=== PATIENT | male | born 1995 | race Caucasian/White ===

== ENCOUNTER 2016-12-05 09:58 | Emergency (ER) | payer BC, OTHER ==
[~2016-12-05] VITALS: Ht 188 cm; Wt 152.6 kg
[~2016-12-05 09:58] MED LIST: ACET-1311; AZITTAB PO
[2016-12-05 10:06] VITALS: BP 152/105; PULSE 86; TEMP 37.2; O2SAT 98; Ht 188 cm; Wt 152.6 kg
[2016-12-05] MEDS ORDERED: ADAL40KI INJ (10:56)
--- NOTE | 2016-12-05 11:06 | DIAGNOSTIC IMAGING REPORT ---
LEFT KNEE 3 VIEWS CLINICAL HISTORY: Left knee pain and swelling following injury. COMPARISON: None FINDINGS: Alignment of the left knee is anatomic. There is no acute fracture. Joint effusion is difficult to assess for on this examination due to overlapping musculature. There is subtle relative lucency of the distal quadriceps. IMPRESSION: 1. No acute fracture. 2. Possible left knee joint effusion, difficult to assess for on this exam due to overlapping musculature. 3. Subtle relative lucency of the distal quadriceps. This is likely artifactual although distal quadriceps tendon injury could appear similar. Electronically signed by: Sukh Baca M.D. 12/05/2016 11:04 AM Dictated Date/Time: 12/05/2016 11:00 AM
--- NOTE | 2016-12-06 07:51 | EMERGENCY ROOM VISIT NOTE ---
ED Visit Note First contact with patient: 10:10 CHIEF COMPLAINT: Left Knee injury HISTORY OF PRESENT ILLNESS: This 21-year-old [place] male patient injured the left knee yesterday when he jumped off a deck and fell into the yard. Fall was approximately 2 feet. He believes it was a pop at the time he landed. Later in the day he was attempting to wash his car and had his knee buckle when he twisted. Swelling has persisted. No prior history of significant knee injury. He denies any numbness or tingling. No catching or locking. No treatment at this point. His parents accompany him today. REVIEW OF SYSTEM: HEENT: No dizziness, visual problems, hearing loss, or tinnitus. There is no difficulty swallowing and no oral lesions are present. PULMONARY: No cough, shortness of breath, sputum production or hemoptysis. CARDIOVASCULAR: No chest pain, palpitations, shortness of breath or peripheral edema. GASTROINTESTINAL: No diarrhea, constipation, nausea, vomiting, or abdominal pain. GENITOURINARY: No dysuria, frequency, urgency or nocturia. NEUROLOGIC: No weakness, muscle tenderness, epilepsy or history of neurological problems. MUSCULOSKELETAL: No history of joint tenderness/swelling. No history of arthritis or arthralgias. SKIN: No rashes or lesions. PSYCHIATRIC: No history of depression or mental illness. ENDOCRINE: No history of diabetes, thyroid disorders, or abnormal hair growth. PMH: Significant for psoriasis Family history: Noncontributory SOCIAL HISTORY: Patient lives at home. Current medications: Humira Allergies: NKDA PHYSICAL EXAM: Vital Signs: Reviewed Nurse's notes. Afebrile. MENTAL STATUS: Alert, oriented, and cooperative. General: Well-developed, well-nourished, young male, in no acute distress. Sitting on a bed. Alert and oriented. Skin : Warm and dry with good turgor. Extensive scaling plaques on both lower extremities No ecchymosis or erythema. The patient is not diaphoretic. No abrasions. Moderate intra-articular effusion in the left knee. Musculoskeletal : The left knee is tender in the peripatellar area. Moderate intra-articular effusion. He has no current discomfort with palpation over the medial or lateral joint lines. Increase translation with Mel testing. No instability with MCL or LCL testing. The range of motion is limited secondary to pain. Full terminal extension. Flexion to around 60. No palpable defect in the patellar tendon or quadriceps tendon. He is able to perform a quad set and straight leg raise. The skin is normal and intact. Neurologic: Gross sensation is intact across the lower extremities by soft touch. EMERGENCY DEPARTMENT COURSE: Radiographic imaging obtained today was read by radiology. No evidence for fracture. Moderate joint effusion. DIAGNOSIS: Left knee instability. DISCHARGE INSTRUCTIONS: Patient was educated regarding today's findings. Conservative care measures were discussed. He will need to follow-up with orthopedics for further examination and likely MRI imaging. Possibility of anterior cruciate ligament tear was discussed with the patient. He was placed in a Knee immobilizer for protection. Wilfredo wrap was applied for compression and edema control. He'll use these at all times when upright or ambulatory. Crutches were given and crutch instruction was reviewed. Weight-bear as tolerated in the brace. Start Ibuprofen, 600 mg every 6 hours if needed for pain. Supplement with Tylenol every 6 hours for breakthrough pain. Ice and elevation to the knee frequently for the next 72 hours. Stay off the leg as much as possible. Possibility of meniscal injury, tendon rupture, and fracture were also considered. Current/Historical Medications Scheduled Adalimumab (Humira Pen), Unknown Dose INJ every other wednesday Allergies Coded Allergies: No Known Allergies (Verified , 12/05/16) Vital Signs Date Time Temp Pulse Resp B/P Pulse Ox O2 Delivery O2 Flow Rate FiO2 12/05/16 10:06 37.2 86 18 152/105 98 Room Air Departure Information Impression Primary Impression: Instability of left knee joint Dispostion Home / Self-Care Condition GOOD Referrals Andrei Paul MD Forms HOME CARE DOCUMENTATION FORM, MOTRIN USE, TYLENOL USE, IMPORTANT VISIT INFORMATION Patient Instructions [facility] Additional Instructions Tylenol and Motrin every 6 hours as needed for discomfort Ice and elevate frequently to reduce pain and swelling Use the Wilfredo wrap for compression and edema control Use the knee immobilizer at all times when upright and weightbearing Use your crutches as needed when standing/walking Call Dr. Paul on Wednesday for follow-up this week
== END 2016-12-05 11:37 | disposition home or self-care (01) ==
LOC: C.EDB 10:01
DX: M23.8X2 Other internal derangements of left knee (principal); W17.89XA Other fall from one level to another, initial encounter; Y92.018 Other place in single-family (private) house as the place of occurrence of the external cause; L40.9 Psoriasis, unspecified; Z79.899 Other long term (current) drug therapy

== ENCOUNTER 2025-05-05 14:19 | Inpatient (IN) ==
--- NOTE | 2025-05-05 14:35 | Emergency Department Note ---
Impression & Plan Cholecystitis, Abdominal pain, acute, right upper quadrant, Nausea & vomiting ED Provider Note CHIEF COMPLAINT: Abdominal pain HISTORY OF PRESENTING ILLNESS: The patient is a 29-year-old male who presents to the emergency department with complaints of right upper quadrant abdominal pain and flank pain that began yesterday. He also reports nausea, vomiting, and constipation. No known fevers. He has been taking MiraLAX without relief. Denies history of abdominal surgeries or IBD/IBS. He denies chest pain, shortness of breath, urinary symptoms, blood in his stool. REVIEW OF SYSTEMS: See HPI for pertinent positives and pertinent negatives. ALLERGIES: NKDA MEDICATIONS: Denies currently taking medications. PAST MEDICAL HISTORY: Psoriasis PHYSICAL EXAM: VITALS: Vitals are noted on the nurse's note and reviewed by myself. Vital signs stable. GENERAL: 29-year-old male, lying on his side in bed, in no acute distress, nondiaphoretic, well-developed well-nourished. SKIN: Capillary refill less than 2 seconds. Psoriasis noted on the bilateral upper extremities as well as entirety of the back. Patient does report this is his baseline. HEENT: Normocephalic. PERRLA. EOMI. Nares patent. Mucous membranes moist. Neck is supple without nuchal rigidity. HEART: Regular rate and rhythm without murmurs gallops or rubs. LUNGS: CTA BL without wheezes, rales or rhonchi. No retractions or accessory muscle use. ABDOMEN: Positive bowel sounds x 4. Tenderness upon palpation to the RUQ and right flank. McBurney's negative. Abdomen is soft without masses. Remaining abdominal quadrants are nontender. No guarding or rebound tenderness. MUSCULOSKELETAL: No gross musculoskeletal defects. NEURO: Patient was alert and oriented. No focal neurological deficits. DIFFERENTIAL DIAGNOSIS: Differential diagnosis includes appendicitis, diverticulitis, bowel obstruction, inflammatory bowel disease, renal colic, PUD, acute cholecystitis, ascending cholangitis, pancreatitis, mesenteric ischemia, aortic pathology, infection, genitourinary, UTI, perforated viscus, among others. ED COURSE AND MEDICAL DECISION MAKING: HISTORY FROM INDEPENDENT HISTORIAN: The patient himself. MEDICATIONS GIVEN: 1 L normal saline, Zofran 4 mg IV, Tylenol 1000 mg IV, Toradol 15 mg IV, Zosyn 4.5 g IV MONITOR: Continuous talent acquisition sourcer: Order was placed for continuous talent acquisition sourcer. Patient was placed on the talent acquisition sourcer and continuous pulse ox. Patient was noted to be in normal sinus rhythm at an initial rate of 51 bpm per my interpretation. EKG: EKG was interpreted by myself as sinus bradycardia. No obvious arrhythmias. No ST or T wave abnormality. No previous EKG for comparison. INTERPRETATION OF LABS: I interpreted the labs with full lab results as below in the lab section of this note. Pertinent lab results discussed in the MDM section below. INTERPRETATION OF IMAGING: Imaging studies were interpreted by myself and read by radiology as per the imaging section of this note. CT abdomen pelvis - Moderately distended gallbladder with pericholecystic inflammatory changes. Suspicious for acute cholecystitis. Ultrasound gallbladder - Findings for acute cholecystitis on ultrasound. Gallstones are seen on exam. ESCALATION OF CARE CONSIDERED: Escalation of care was considered due to the patient's presentation and right upper quadrant pain. CT imaging shows acute cholecystitis. The patient was admitted for further testing, IV antibiotics, and possible cholecystectomy. CONSULTATIONS: - On-call general surgeon Dr. Beaver - Presented the patient to the provider and known CT findings showing acute cholecystitis. He requested that the patient is admitted to medicine for an ultrasound and possible HIDA scan to investigate if there are stones. He is going to evaluate the patient in the morning. - On-call [facility] hospitalist Dr. Alvarado - Presented the patient to the provider as well as my conversation with the on-call general surgeon which can be seen above. I did inform them that I have started the patient on IV Zosyn. Nausea and pain are controlled. Ultrasound has been obtained and awaiting results. They agreed to admitting him to medicine and evaluating the patient. MDM SUMMARY: I evaluated the 29-year-old male who presents to the emergency department due to right upper quadrant abdominal pain, nausea and vomiting, and constipation for 2 days. See HPI and physical exam above. Initially 1 L normal saline, Zofran, and Tylenol were given for symptom management. IV access was established and labs were obtained. EKG collected to rule out cardiac cause and troponin ordered. EKG shows sinus bradycardia with a rate of 51. Troponin normal 4.1. No leukocytosis WBC 10.23. RBC 5.48. Hemoglobin hematocrit 15.7/46.2. No significant electrolyte abnormality. BUN 8. Creatinine 1.03. AST 18. ALT 21. Lipase 22. On reevaluation of the patient he confirms that he is still in discomfort. Toradol was given. Pain was significantly improved. CT shows distended gallbladder with pericholecystic inflammatory change suspicious for acute cholecystitis. A consultation was placed with the on-call general surgeon which can be seen in detail above. He recommended gallbladder ultrasound and HIDA scan to investigate for stone admission to medicine. Gallbladder ultrasound was ordered and IV Zosyn was started. Consultation with on-call [facility] hospitalist can be seen in detail above. Patient was admitted to medicine in stable condition for evaluation by the general surgeon in the morning. Patient agrees to this plan and all questions were answered. The patient was admitted in stable condition. DIAGNOSIS: Cholecystitis, right upper quadrant abdominal pain, nausea and vomiting The chart was completed utilizing [employer] Speech voice recognition software. Grammatical errors, random word insertions, pronoun errors, and incomplete sentences are an occasional consequence of this system due to software limitations, ambient noise, and hardware issues. Any formal questions or concerns about the content, text, or information contained within the body of this dictation should be directly addressed to the provider for clarification. Past Med/Surg History Problem List Encounter for pre-operative examination Nausea & vomiting (Acute) Abdominal pain, acute, right upper quadrant (Acute) Cholecystitis (Acute) Medical History Psoriasis Obesity Surgical History No pertinent past surgical history Social History Smoking Status: Current every day smoker Tobacco Type: E-cigarettes / Vaping Hx Alcohol Use: No Hx Substance Use: No Feels Safe at Home: Yes Allergies Allergies Allergy/AdvReac Type Severity Reaction Status Date / Time No Known Allergies Allergy Mild Verified 05/05/25 15:02 Home Meds Home Medications Medication Instructions Recorded Confirmed No Known Home Medications 05/05/25 05/05/25 Results & Data (ED) Vital Signs Vital Signs - 24 hr 05/05/25 16:30 05/05/25 18:00 05/05/25 20:00 Pulse Rate [Apical] 54 L 68 70 Respiratory Rate 16 16 18 Blood Pressure [Right Arm] 163/98 H 148/94 H 147/93 H Blood Pressure Mean [Right Arm] 119 112 111 Pulse Oximetry 100 98 99 Oxygen Delivery Method Room Air Room Air Room Air Laboratory Data 05/05/25 15:10 05/05/25 15:10 Lab Results 05/05/25 Range/Units 15:10 WBC 10.23 (4.8-10.8) K/ul RBC 5.48 (4.70-6.10) M/uL Hgb 15.7 (14.0-18.0) g/dl Hct 46.2 (42.0-52.0) % MCV 84.3 (80.0-100.0) fL MCH 28.6 (25.0-34.0) pg MCHC 34.0 (32.0-36.0) g/dL RDW Std Deviation 38.0 (36.4-46.3) fL RDW Coeff of Shanna 12.4 (11.5-14.5) % Plt Count 267 (130-400) K/uL MPV 10.6 (9.4-12.4) fL Immature Gran % (Auto) 0.2 % Neut % (Auto) 68.9 % Lymph % (Auto) 21.4 % [place] % (Auto) 6.1 % Eos % (Auto) 2.8 % Baso % (Auto) 0.6 % Neut # (Auto) 7.05 H (1.40-6.50) K/uL Lymph # (Auto) 2.19 (1.20-3.40) K/uL [place] # (Auto) 0.62 H (0.11-0.59) K/uL Eos # (Auto) 0.29 (0.00-0.50) K/uL Baso # (Auto) 0.06 (0.00-0.20) K/uL Immature Gran # (Auto) 0.02 (0.01-0.20) K/uL Sodium 139 (136-145) mmol/L Potassium 3.7 (3.5-5.1) mmol/L Chloride 108 H (98-107) mmol/L Carbon Dioxide 21 (21-32) mmol/L Anion Gap 10 (3-11) BUN 8 (6-23) mg/dl Creatinine 1.03 (0.6-1.4) mg/dl Est Cr Clr Drug Dosing 163.8 ml/min eGFR 100.84 BUN/Creatinine Ratio 7.8 L (10-20) Glucose 116 H (70-99(Fasting)) mg/dl Calcium 9.4 (8.6-10.3) mg/dl Total Bilirubin 0.8 (0.2-1.0) mg/dl AST 18 (13-39) U/L ALT 21 (7-52) U/L Alkaline Phosphatase 58 (34-104) U/L Troponin I High Sens 4.1 (0-20) pg/ml Total Protein 7.6 (6.0-8.3) gm/dl Albumin 4.6 (3.4-5.0) gm/dl Globulin 3.0 (2.5-4.0) gm/dl Albumin/Globulin Ratio 1.5 (0.9-2) Lipase 22 (11-82) U/L Administered Medications Sodium Chloride (Nss) 1,000 mls @ 125 mls/hr IV .Q8H PAOLO Stop: 05/08/25 21:40 Last Admin: 05/06/25 12:46 Dose: Not Given Documented By: Admin: 05/06/25 12:19 Dose: 125 mls/hr Documented By: Infusion: 05/06/25 10:13 Dose: Infused Documented By: Admin: 05/05/25 21:56 Dose: 125 mls/hr Documented By: DEVIN Piperacillin Sod/Tazobactam Sod (Zosyn) 4.5 gm in 100 mls @ 25 mls/hr IV Q8H PAOLO; Protocol Stop: 05/16/25 00:00 Last Admin: 05/06/25 15:03 Dose: 25 mls/hr Documented By: Infusion: 05/06/25 12:46 Dose: Infused Documented By: Admin: 05/06/25 08:06 Dose: 25 mls/hr Documented By: Infusion: 05/06/25 04:20 Dose: Infused Documented By: Admin: 05/06/25 00:20 Dose: 25 mls/hr Documented By: DEVIN Morphine Sulfate (Morphine Sulfate 4 Mg/Ml 1 Ml Carp\Vial) 4 mg IV Q3H PRN PRN Reason: Pain (6,7,8,9,10) Stop: 05/20/25 11:36 Last Admin: 05/06/25 14:30 Dose: 4 mg Documented By: FAROOQ Ondansetron HCl (Ondansetron Inj 2 Mg/Ml 2 Ml Vial) 4 mg IV Q6H PRN PRN Reason: Nausea Stop: 06/04/25 21:40 Last Admin: 05/05/25 21:56 Dose: 4 mg Documented By: DEVIN Oxycodone/Acetaminophen (Oxycodone/Acetaminophen 5mg/325mg Tab) 2 tab PO Q4H PRN PRN Reason: SEVERE Pain (7,8,9,10) Stop: 05/20/25 11:36 Last Admin: 05/06/25 12:19 Dose: 2 tab Documented By: FAROOQ Discontinued Medications Bupivacaine HCl/Epinephrine Bitart (Bupivacaine/Epinephrine 0.5% Mpf 1:200,000 30 Ml Vial) Confirm Administered Dose 30 ml .ROUTE .STK-MED ONE Stop: 05/06/25 08:20 Last Admin: 05/06/25 10:30 Dose: 20 ml Documented By: JUAN JOSE Hydromorphone HCl (Hydromorphone Inj 1 Mg/Ml Syringe) 0.25 mg IV Q5M PRN PRN Reason: PACU Use Only-Pain Stop: 05/06/25 16:25 Last Admin: 05/06/25 11:00 Dose: 0.25 mg Documented By: Admin: 05/06/25 10:55 Dose: 0.25 mg Documented By: Admin: 05/06/25 10:50 Dose: 0.25 mg Documented By: Admin: 05/06/25 10:45 Dose: 0.25 mg Documented By: LUZ Sodium Chloride (Nss) 1,000 mls @ 999 mls/hr IV .Q1H1M ONE Stop: 05/05/25 15:50 Last Infusion: 05/05/25 17:17 Dose: Infused Documented By: NRTarah Admin: 05/05/25 15:17 Dose: 999 mls/hr Documented By: ML Acetaminophen (Ofirmev) 1,000 mg in 100 mls @ 400 mls/hr IV NOW STA Stop: 05/05/25 15:04 Last Infusion: 05/05/25 15:49 Dose: Infused Documented By: Admin: 05/05/25 15:16 Dose: 400 mls/hr Documented By: ML Piperacillin Sod/Tazobactam Sod (Zosyn) 4.5 gm in 100 mls @ 200 mls/hr IV NOW ONE; Protocol Stop: 05/05/25 19:18 Last Infusion: 05/05/25 19:59 Dose: Infused Documented By: Admin: 05/05/25 19:23 Dose: 200 mls/hr Documented By: NRTarah Ioversol (Optiray 320 125ml) 119 ml IV ONCE ONE Stop: 05/05/25 17:25 Last Admin: 05/05/25 17:24 Dose: 119 ml Documented By: SHELBYK Ketorolac Tromethamine (Ketorolac Tromethamine 15 Mg/Ml Vial) 15 mg IV NOW STA Stop: 05/05/25 17:19 Last Admin: 05/05/25 17:31 Dose: 15 mg Documented By: ANALY Ketorolac Tromethamine (Ketorolac Tromethamine 15 Mg/Ml Vial) 15 mg IV Q6H PRN PRN Reason: Mod-Sev Pain (Scale 4-10) Stop: 05/10/25 21:40 Last Admin: 05/06/25 08:06 Dose: 15 mg Documented By: Admin: 05/05/25 21:55 Dose: 15 mg Documented By: DEVIN Ondansetron HCl (Ondansetron Inj 2 Mg/Ml 2 Ml Vial) 4 mg IV NOW STA Stop: 05/05/25 14:51 Last Admin: 05/05/25 15:16 Dose: 4 mg Documented By: ML Imaging Data Radiologist's Impression: Abdomen/Pelvis CT 05/05/25 14:51 CT ABDOMEN and PELVIS with INTRAVENOUS CONTRAST HISTORY: Abdominal pain TECHNIQUE: CT abdomen and pelvis with contrast. IV CONTRAST: 100 mL of OMNIPAQUE 300 ENTERIC CONTRAST: Not Given COMPARISON: FINDINGS: LOWER CHEST: Unremarkable LIVER: No focal lesion identified. Hepatic steatosis and hepatomegaly. GALLBLADDER/BILIARY: No calcified gallstones are identified. However, the gallbladder is moderately distended with pericholecystic inflammatory changes. No abnormal biliary dilatation. SPLEEN: Unremarkable. PANCREAS: Unremarkable. ADRENALS: Unremarkable. KIDNEYS: Unremarkable. No stones or hydronephrosis identified. PERITONEUM/RETROPERITONEUM. No lymphadenopathy by size criteria. No aortic aneurysm. GASTROINTESTINAL: No obstruction. Normal appendix. REPRODUCTIVE: Unremarkable BONES: No acute findings. IMPRESSION: Moderately distended gallbladder with pericholecystic inflammatory changes. This is suspicious for acute cholecystitis, particularly given the right upper quadrant pain. Further evaluation with abdominal ultrasound and HIDA scan may be considered. Normal appendix Electronically signed by Yash Lindsey 05-05-2025 6:14 PM Gallbladder Ultrasound 05/05/25 18:47 ABDOMINAL ULTRASOUND LIMITED INDICATION: Abdominal pain. TECHNIQUE: Limited upper quadrant ultrasound examination of the abdomen. COMPARISON: Same-day CT examination of the abdomen FINDINGS: LIVER: Size: Enlarged, measuring up to 22 cm in craniocaudal length. Echogenicity: Increased Surface nodularity: None Mass: None identified. BILE DUCTS: Intrahepatic ducts: Nondilated Common bile duct diameter: 5 mm GALLBLADDER: Moderately distended gallbladder with multiple large gallstones. There is wall thickening of the gallbladder with small pericholecystic fluid. Sonographic Smith sign: Absent however patient was given pain medications. PANCREAS: Visualized portions appear unremarkable RIGHT KIDNEY LENGTH: 11.2 cm No shadowing stones or hydronephrosis identified. ASCITES: None identified. IMPRESSION: Findings suspicious for acute cholecystitis on ultrasound. Gallstones are seen in this examination Echogenic and enlarged liver suggesting a parenchymal process including but limited to steatosis Electronically signed by Yash Lindsey 05-05-2025 8:43 PM Discharge Plan Visit Data Chief Complaint: Abdominal Pain Stated Complaint: ABD PAIN ED Provider: Santos Castro ED Midlevel Provider: Marbella Walters Discharge Problem: Cholecystitis, Abdominal pain, acute, right upper quadrant, Nausea & vomiting Patient Disposition: Admitted As Inpatient Condition: Fair Discharge Instructions Interventions: ED Discharge Assessment Last Done: 05/05/25 21:13 Discharge Problem: Nausea & vomiting Qualifiers: Vomiting type: unspecified Qualified Code(s): R11.2 - Nausea with vomiting, unspecified
[2025-05-05] MEDS: ACETAMINOPHEN 1,000 MG/100 ML VIAL IV STA (15:16)
[2025-05-05] MEDS: ONDANSETRON INJ 2 MG/ML 2 ML VIAL IV STA (15:16)
[2025-05-05] MEDS: SODIUM CHLORIDE 0.9% 1,000 ML IV ONE (15:17)
[2025-05-05 15:24] LABS: Hematocrit (blood only) 46.2 % (42.0-52.0); Hemoglobin 15.7 g/dl (14.0-18.0); Immature Granulocytes # (auto) 0.02 K/uL (0.01-0.20); Immature Granulocytes % (auto) 0.2 %; Mean Corpuscular Hemoglobin 28.6 pg (25.0-34.0); Mean Corpuscular Volume 84.3 fL (80.0-100.0); Platelet Count 267 K/uL (130-400); RDW Standard Deviation 38.0 fL (36.4-46.3); Red Blood Count 5.48 M/uL (4.70-6.10); White Blood Count 10.23 K/ul (4.8-10.8)
[2025-05-05 15:42] LABS: Alanine Aminotransferase 21.0 U/L (7-52); Albumin Globulin Ratio 1.5 (0.9-2); Alkaline Phosphatase 58.0 U/L (34-104); Anion Gap 10.0 (3-11); Bilirubin,Total 0.8 mg/dl (0.2-1.0); Blood Urea Nitrogen 8.0 mg/dl (6-23); Calcium 9.4 mg/dl (8.6-10.3); Carbon Dioxide 21.0 mmol/L (21-32); Chloride 108.0 mmol/L (98-107); Creatinine Clr Calc Pharmacy 163.8 ml/min; Globulin 3.0 gm/dl (2.5-4.0); Glucose 116.0 mg/dl (70-99(Fasting)); Lipase 22.0 U/L (11-82); Potassium 3.7 mmol/L (3.5-5.1); Sodium 139.0 mmol/L (136-145); Total Protein 7.6 gm/dl (6.0-8.3)
[2025-05-05] MEDS: OPTIRAY 320 125ml IV ONE (17:24)
[2025-05-05] MEDS: KETOROLAC TROMETHAMINE 15 MG/ML VIAL IV STA (17:31)
--- NOTE | 2025-05-05 18:14 | CT Scan Report ---
CT ABDOMEN and PELVIS with INTRAVENOUS CONTRAST HISTORY: Abdominal pain TECHNIQUE: CT abdomen and pelvis with contrast. IV CONTRAST: 100 mL of OMNIPAQUE 300 ENTERIC CONTRAST: Not Given COMPARISON: FINDINGS: LOWER CHEST: Unremarkable LIVER: No focal lesion identified. Hepatic steatosis and hepatomegaly. GALLBLADDER/BILIARY: No calcified gallstones are identified. However, the gallbladder is moderately distended with pericholecystic inflammatory changes. No abnormal biliary dilatation. SPLEEN: Unremarkable. PANCREAS: Unremarkable. ADRENALS: Unremarkable. KIDNEYS: Unremarkable. No stones or hydronephrosis identified. PERITONEUM/RETROPERITONEUM. No lymphadenopathy by size criteria. No aortic aneurysm. GASTROINTESTINAL: No obstruction. Normal appendix. REPRODUCTIVE: Unremarkable BONES: No acute findings. IMPRESSION: Moderately distended gallbladder with pericholecystic inflammatory changes. This is suspicious for acute cholecystitis, particularly given the right upper quadrant pain. Further evaluation with abdominal ultrasound and HIDA scan may be considered. Normal appendix Electronically signed by Yash Lindsey 05-05-2025 6:14 PM
[2025-05-05] MEDS: PIPERACILLIN/TAZOBACTAM 4.5 GM/100 ML BAG IV ONE (19:23)
--- NOTE | 2025-05-05 20:43 | Ultrasound Report ---
ABDOMINAL ULTRASOUND LIMITED INDICATION: Abdominal pain. TECHNIQUE: Limited upper quadrant ultrasound examination of the abdomen. COMPARISON: Same-day CT examination of the abdomen FINDINGS: LIVER: Size: Enlarged, measuring up to 22 cm in craniocaudal length. Echogenicity: Increased Surface nodularity: None Mass: None identified. BILE DUCTS: Intrahepatic ducts: Nondilated Common bile duct diameter: 5 mm GALLBLADDER: Moderately distended gallbladder with multiple large gallstones. There is wall thickening of the gallbladder with small pericholecystic fluid. Sonographic Smith sign: Absent however patient was given pain medications. PANCREAS: Visualized portions appear unremarkable RIGHT KIDNEY LENGTH: 11.2 cm No shadowing stones or hydronephrosis identified. ASCITES: None identified. IMPRESSION: Findings suspicious for acute cholecystitis on ultrasound. Gallstones are seen in this examination Echogenic and enlarged liver suggesting a parenchymal process including but limited to steatosis Electronically signed by Yash Lindsey 05-05-2025 8:43 PM
[2025-05-05] MEDS ORDERED: ACETAMINOPHEN 1,000 MG/100 ML VIAL IV PRN (21:41)
[2025-05-05] MEDS ORDERED: NICOTINE POLACRILEX 2 MG GUM MT PRN (21:48)
--- NOTE | 2025-05-05 21:48 | History & Physical Report ---
Date of Service May 05, 2025 Assessment & Plan (1) Cholecystitis: Plan: 29-year-old male with past medical history significant for morbid obesity, psoriasis currently not taking any medications presents with right quadrant abdominal pain of 1 day duration. Was having nausea and vomitings. Currently with the pain medication pain is improved. Resting comfortably. Afebrile. Denies any headache, runny nose or sore throat. No chest pain or shortness of breath. Hemodynamics are okay. Cholecystitis Presents with abdominal pain and CT scan showing moderate distended gallbladder with pericholecystic inflammatory changes suspicious for acute cholecystitis Gallbladder ultrasound suspicious for acute cholecystitis and gallstones are seen. Echogenic and enlarged liver suggesting peritoneal process including but limited to steatosis seen Plan for HIDA scan N.p.o., IV fluids, IV Zosyn, pain control Surgery consult Psoriasis Follow-up with PCP Morbid obesity Counseling Follow-up with PCP Vaping Request for nicotine gums Counseling DVT prophylaxis SCDs Disposition Medical floor Full code History of Present Illness Chief Complaint: Acute cholecystitis Primary Care Provider: NO PCP 29-year-old male with past medical history significant for morbid obesity, psoriasis currently not taking any medications presents with right quadrant abdominal pain of 1 day duration. Was having nausea and vomitings. Currently with the pain medication pain is improved. Resting comfortably. Afebrile. Denies any headache, runny nose or sore throat. No chest pain or shortness of breath. Hemodynamics are okay. Past medical history. As mentioned above Past surgical history. None as per [facility] Social history. Vapes. Alcohol once a month as per epic. No drug use. Family history. Father had diabetes. Hypertension. Maternal grandfather had diabetes. Hypertension. Paternal grandfather had diabetes. Hypertension. Mother has hypertension. Allergies Allergy/AdvReac Type Severity Reaction Status Date / Time No Known Allergies Allergy Mild Verified 05/05/25 15:02 Home Medications Medication Instructions Recorded Confirmed Type No Known Home Medications 05/05/25 05/05/25 History Past Med/Surg History Problem List (Updated 05/06/25 @ 07:05 by Rehan Delgado MD) Encounter for pre-operative examination Nausea & vomiting (Acute) Abdominal pain, acute, right upper quadrant (Acute) Cholecystitis (Acute) Medical History (Updated 05/06/25 @ 07:05 by Rehan Delgado MD) Psoriasis Obesity Surgical History (Updated 05/06/25 @ 07:05 by Rehan Delgado MD) No pertinent past surgical history Social History Smoking Status: Current every day smoker Tobacco Type: E-cigarettes / Vaping Hx Alcohol Use: No Hx Substance Use: No Feels Safe at Home: Yes Review of Systems Review of Systems: All systems reviewed & are unremarkable except as noted in HPI & below Physical Exam Physical Exam: General- Not in distress Head- atraumatic Eyes- PERRL. ENT- oropharynx clear Neck- supple, no JVD Lungs- clear to auscultation no wheezing or crackles Heart- regular rhythm; no murmur, no gallop. Abdomen- normal bowel sounds, soft, mild discomfort in upper abdomen, no distension. Extremities- no pretibial edema, no erythema seen Neuro- alert, oriented PERRL, no facial palsy; no dysarthria; moves extremities. Skin- diffuse psoriatic rash seen Results & Data Results & Data Vital Signs (Past 12 Hours) Vital Signs Temp Pulse Pulse Resp BP BP Pulse Ox 05/05/25 16:30 54 L 16 163/98 H 100 05/05/25 15:14 100 05/05/25 15:13 51 L 05/05/25 14:28 36.5 C 55 L 16 157/99 H 98 O2 Del Method 05/05/25 16:30 Room Air 05/05/25 15:14 Room Air 05/05/25 15:13 05/05/25 14:28 Room Air Diagnostic Findings Laboratory Results WBC 10.23 K/ul (4.8-10.8) 05/05/25 15:10 RBC 5.48 M/uL (4.70-6.10) 05/05/25 15:10 Hgb 15.7 g/dl (14.0-18.0) 05/05/25 15:10 Hct 46.2 % (42.0-52.0) 05/05/25 15:10 MCV 84.3 fL (80.0-100.0) 05/05/25 15:10 MCH 28.6 pg (25.0-34.0) 05/05/25 15:10 MCHC 34.0 g/dL (32.0-36.0) 05/05/25 15:10 RDW Std Deviation 38.0 fL (36.4-46.3) 05/05/25 15:10 RDW Coeff of Shanna 12.4 % (11.5-14.5) 05/05/25 15:10 Plt Count 267 K/uL (130-400) 05/05/25 15:10 MPV 10.6 fL (9.4-12.4) 05/05/25 15:10 Immature Gran % (Auto) 0.2 % 05/05/25 15:10 Neut % (Auto) 68.9 % 05/05/25 15:10 Lymph % (Auto) 21.4 % 05/05/25 15:10 Johnson % (Auto) 6.1 % 05/05/25 15:10 Eos % (Auto) 2.8 % 05/05/25 15:10 Baso % (Auto) 0.6 % 05/05/25 15:10 Neut # (Auto) 7.05 K/uL (1.40-6.50) H 05/05/25 15:10 Lymph # (Auto) 2.19 K/uL (1.20-3.40) 05/05/25 15:10 Johnson # (Auto) 0.62 K/uL (0.11-0.59) H 05/05/25 15:10 Eos # (Auto) 0.29 K/uL (0.00-0.50) 05/05/25 15:10 Baso # (Auto) 0.06 K/uL (0.00-0.20) 05/05/25 15:10 Immature Gran # (Auto) 0.02 K/uL (0.01-0.20) 05/05/25 15:10 Sodium 139 mmol/L (136-145) 05/05/25 15:10 Potassium 3.7 mmol/L (3.5-5.1) 05/05/25 15:10 Chloride 108 mmol/L (98-107) H 05/05/25 15:10 Carbon Dioxide 21 mmol/L (21-32) 05/05/25 15:10 Anion Gap 10 (3-11) 05/05/25 15:10 BUN 8 mg/dl (6-23) 05/05/25 15:10 Creatinine 1.03 mg/dl (0.6-1.4) 05/05/25 15:10 Est Cr Clr Drug Dosing 163.8 ml/min 05/05/25 15:10 eGFR 100.84 05/05/25 15:10 BUN/Creatinine Ratio 7.8 (10-20) L 05/05/25 15:10 Glucose 116 mg/dl (70-99(Fasting)) H 05/05/25 15:10 Calcium 9.4 mg/dl (8.6-10.3) 05/05/25 15:10 Total Bilirubin 0.8 mg/dl (0.2-1.0) 05/05/25 15:10 AST 18 U/L (13-39) 05/05/25 15:10 ALT 21 U/L (7-52) 05/05/25 15:10 Alkaline Phosphatase 58 U/L (34-104) 05/05/25 15:10 Troponin I High Sens 4.1 pg/ml (0-20) 05/05/25 15:10 Total Protein 7.6 gm/dl (6.0-8.3) 05/05/25 15:10 Albumin 4.6 gm/dl (3.4-5.0) 05/05/25 15:10 Globulin 3.0 gm/dl (2.5-4.0) 05/05/25 15:10 Albumin/Globulin Ratio 1.5 (0.9-2) 05/05/25 15:10 Lipase 22 U/L (11-82) 05/05/25 15:10 Impressions Abdomen/Pelvis CT 05/05/25 14:51 CT ABDOMEN and PELVIS with INTRAVENOUS CONTRAST HISTORY: Abdominal pain TECHNIQUE: CT abdomen and pelvis with contrast. IV CONTRAST: 100 mL of OMNIPAQUE 300 ENTERIC CONTRAST: Not Given COMPARISON: FINDINGS: LOWER CHEST: Unremarkable LIVER: No focal lesion identified. Hepatic steatosis and hepatomegaly. GALLBLADDER/BILIARY: No calcified gallstones are identified. However, the gallbladder is moderately distended with pericholecystic inflammatory changes. No abnormal biliary dilatation. SPLEEN: Unremarkable. PANCREAS: Unremarkable. ADRENALS: Unremarkable. KIDNEYS: Unremarkable. No stones or hydronephrosis identified. PERITONEUM/RETROPERITONEUM. No lymphadenopathy by size criteria. No aortic aneurysm. GASTROINTESTINAL: No obstruction. Normal appendix. REPRODUCTIVE: Unremarkable BONES: No acute findings. IMPRESSION: Moderately distended gallbladder with pericholecystic inflammatory changes. This is suspicious for acute cholecystitis, particularly given the right upper quadrant pain. Further evaluation with abdominal ultrasound and HIDA scan may be considered. Normal appendix Electronically signed by Yash Lindsey 05-05-2025 6:14 PM Gallbladder Ultrasound 05/05/25 18:47 ABDOMINAL ULTRASOUND LIMITED INDICATION: Abdominal pain. TECHNIQUE: Limited upper quadrant ultrasound examination of the abdomen. COMPARISON: Same-day CT examination of the abdomen FINDINGS: LIVER: Size: Enlarged, measuring up to 22 cm in craniocaudal length. Echogenicity: Increased Surface nodularity: None Mass: None identified. BILE DUCTS: Intrahepatic ducts: Nondilated Common bile duct diameter: 5 mm GALLBLADDER: Moderately distended gallbladder with multiple large gallstones. There is wall thickening of the gallbladder with small pericholecystic fluid. Sonographic Smith sign: Absent however patient was given pain medications. PANCREAS: Visualized portions appear unremarkable RIGHT KIDNEY LENGTH: 11.2 cm No shadowing stones or hydronephrosis identified. ASCITES: None identified. IMPRESSION: Findings suspicious for acute cholecystitis on ultrasound. Gallstones are seen in this examination Echogenic and enlarged liver suggesting a parenchymal process including but limited to steatosis Electronically signed by Yash Lindsey 05-05-2025 8:43 PM ECG Additional Comments: ECG sinus bradycardia 51. No acute ST changes seen. Code Status & VTE Plan VTE Prophylaxis Plan VTE Prophylaxis will be ordered: Yes
[2025-05-05] MEDS: KETOROLAC TROMETHAMINE 15 MG/ML VIAL IV PRN (21:55)
[2025-05-05] MEDS: SODIUM CHLORIDE 0.9% 1,000 ML IV SCH (21:56)
[2025-05-05] MEDS: ONDANSETRON INJ 2 MG/ML 2 ML VIAL IV PRN (21:56)
[2025-05-06] MEDS: PIPERACILLIN/TAZOBACTAM 4.5 GM/100 ML BAG IV SCH (00:20)
[2025-05-06 06:35] LABS: Alanine Aminotransferase 15.0 U/L (7-52); Alkaline Phosphatase 51.0 U/L (34-104); Bilirubin,Total 1.1 mg/dl (0.2-1.0); Total Protein 6.5 gm/dl (6.0-8.3)
--- NOTE | 2025-05-06 07:05 | Anesthesiology Consultation ---
Date of Service May 06, 2025 Assessment & Plan (1) Encounter for pre-operative examination: Chart Review Chart Review: Acceptable Risk for Surgery History Surgery Operation Date: 05/06/25 08:30 Proposed Procedures p Laparoscopic Cholecystectomy - Derrick Beaver MD Height/Weight Height: 6 ft 3 in Weight: 182.6 kg Allergies Allergy/AdvReac Type Severity Reaction Status Date / Time No Known Allergies Allergy Mild Verified 05/05/25 15:02 Medications Home Medications Medication Instructions Recorded Confirmed Last Taken No Known Home Medications 05/05/25 05/05/25 Unknown Active Medications Generic Name Dose Route Start Last Admin Trade Name Freq PRN Reason Stop Dose Admin Sodium Chloride 1,000 mls @ 125 mls/hr 05/05/25 21:41 05/05/25 21:56 Nss IV 05/08/25 21:40 125 mls/hr .Q8H PAOLO Administration Piperacillin Sod/Tazobactam Sod 4.5 gm in 100 mls @ 25 mls/hr 05/06/25 00:00 05/06/25 04:20 Zosyn IV 05/16/25 00:00 Infused Q8H PAOLO Infusion Protocol Ketorolac Tromethamine 15 mg 05/05/25 21:41 05/05/25 21:55 Ketorolac Tromethamine 15 Mg/Ml Vial IV 05/10/25 21:40 15 mg Q6H PRN Administration Mod-Sev Pain (Scale 4-10) Ondansetron HCl 4 mg 05/05/25 21:41 05/05/25 21:56 Ondansetron Inj 2 Mg/Ml 2 Ml Vial IV 06/04/25 21:40 4 mg Q6H PRN Administration Nausea Past Medical History Medical History (Updated 05/06/25 @ 07:05 by Rehan Delgado MD) Psoriasis Obesity Past Surgical History Surgical History (Updated 05/06/25 @ 07:05 by Rehan Delgado MD) No pertinent past surgical history Social History Smoking Status: Current every day smoker Hx Alcohol Use: No Hx Substance Use: No Physical Exam Vital Signs Last Vital Signs Temp 36.5 C 05/05/25 21:50 Pulse 56 L 05/05/25 21:50 Resp 20 05/05/25 21:50 BP 152/99 H 05/05/25 21:50 Pulse Ox 95 05/05/25 21:50 O2 Del Method Room Air 05/05/25 21:50 Testing Laboratory Results 05/05/25 15:10 05/05/25 15:10
[2025-05-06] MEDS ORDERED: ONDANSETRON INJ 2 MG/ML 2 ML VIAL ONE (07:12)
[2025-05-06] MEDS ORDERED: LIDOCAINE 2% 2 ML VIAL/AMP(20MG/ML) INFIL ONE (07:12)
[2025-05-06] MEDS ORDERED: DEXAMETHASONE SOD INJ 4 MG/ML VIAL ONE (07:12)
[2025-05-06] MEDS ORDERED: PROPOFOL IV EMULSION 10 MG/ML 20 ML VIAL IV ONE ×2 (07:12→07:13)
[2025-05-06] MEDS ORDERED: MIDAZOLAM HCL 1 MG/ML 2ML VIAL ONE (07:12)
[2025-05-06] MEDS ORDERED: LARYING-O-JET KIT (LTA) ONE (07:13)
[2025-05-06] MEDS ORDERED: ROCURONIUM BROMIDE 10 MG/ML 5 ML VIAL IV ONE ×2 (07:13→09:18)
[2025-05-06] MEDS ORDERED: SUCCINYLCHOLINE CHLORIDE 20 MG/ML 10 ML VIAL IV ONE (07:13)
[2025-05-06] MEDS ORDERED: DexMEDEtomidine HCL IV 100 MCG/ML VIAL IV ONE (07:18)
--- NOTE | 2025-05-06 08:08 | Surgery Progress Note ---
Date of Service May 06, 2025 Assessment & Plan (1) Cholecystitis: Plan: IVF NPO IV abx to OR for lap michelle Admission and Anticipated Discharge Date Admission Date: May 05, 2025 Subjective This is a 29YO male admitted with right upper quadrant abdominal pain. He had nausea and some emesis. An ultrasound shows stones and signs of inflammation. Review of Systems Constitutional: + anorexia; no fever and no chills Eyes: no problem reported Ear, Nose, Mouth, Throat: no problem reported Respiratory: no cough and no dyspnea Cardiovascular: no chest pain Gastrointestinal: + abdominal pain, + nausea and + vomitin g; no change in bowel habits Genitourinary: no dysuria Musculoskeletal: no back pain Integumentary: no problem reported Neurologic: no localized weakness and no generalized weakness Psychiatric: no behavioral changes Hematologic / Lymphatic: no easy bleeding and no easy bruising Physical Exam Constitutional: WD/WN, vitals as above + morbidly obese Eyes: no scleral abnormality ENMT: external ear and nose normal, oropharynx normal Neck: trachea midline Respiratory: normal respiratory effort, lungs clear to auscultation Cardiovascular: RRR, no murmur, no edema Gastrointestinal (Abdomen): Inspection/Auscultation: abdomen normal to inspection and normal bowel sounds; abdomen not distended Percussion/Palpation: + abdomen tender and abdomen soft; no guarding, abdomen not rigid and no hernia Musculoskeletal: Head/Neck/Chest: normocephalic and head atraumatic Skin: no rashes, warm and dry Results & Data Vital Signs (Past 12 Hours) Vital Signs Temp Pulse Pulse Resp BP Pulse Ox O2 Del Method 05/06/25 07:31 36.6 C 78 18 149/93 H 95 Room Air 05/05/25 21:50 36.5 C 56 L 20 152/99 H 95 Room Air 05/05/25 21:41 36.5 C 56 L 20 154/99 H 95 Room Air 05/05/25 21:00 68 16 146/98 H 98 Room Air Diagnostic Findings ABDOMINAL ULTRASOUND LIMITED INDICATION: Abdominal pain. TECHNIQUE: Limited upper quadrant ultrasound examination of the abdomen. COMPARISON: Same-day CT examination of the abdomen FINDINGS: LIVER: Size: Enlarged, measuring up to 22 cm in craniocaudal length. Echogenicity: Increased Surface nodularity: None Mass: None identified. BILE DUCTS: Intrahepatic ducts: Nondilated Common bile duct diameter: 5 mm GALLBLADDER: Moderately distended gallbladder with multiple large gallstones. There is wall thickening of the gallbladder with small pericholecystic fluid. Sonographic Smith sign: Absent however patient was given pain medications. PANCREAS: Visualized portions appear unremarkable RIGHT KIDNEY LENGTH: 11.2 cm No shadowing stones or hydronephrosis identified. ASCITES: None identified. IMPRESSION: Findings suspicious for acute cholecystitis on ultrasound. Gallstones are seen in this examination Echogenic and enlarged liver suggesting a parenchymal process including but limited to steatosis
[2025-05-06] MEDS ORDERED: HYDROmorphone INJ 0.5 MG/0.5 ML SYR IV PRN (08:15)
[2025-05-06] MEDS ORDERED: LABETALOL HCL IV 5 MG/ML 20ML IV PRN (08:25)
[2025-05-06] MEDS ORDERED: PROMETHAZINE HCL 6.25 MG in SODIUM CHLORIDE 0.9% 50 ML IV PRN (08:25)
[2025-05-06] MEDS ORDERED: ATROPINE SULFATE 0.1 MG/ML 10ML SYR IV PRN (08:25)
[2025-05-06] MEDS ORDERED: KETOROLAC 30 MG/ML VIAL IV PRN (08:25)
[2025-05-06] MEDS ORDERED: SUGAMMADEX SODIUM 200 MG/2 ML VIAL IV ONE (08:57)
[2025-05-06] MEDS ORDERED: HYDROmorphone INJ 1 MG/ML SYRINGE ONE (10:10)
[2025-05-06] MEDS: BUPIVACAINE/EPINEPHRINE 0.5% MPF 1:200,000 30 ML VIAL ONE (10:30)
--- NOTE | 2025-05-06 10:35 | Operative Report ---
Post Operative Report Pre & Post Diagnosis Operation Date: 05/06/25 08:30 Acute cholecystitis with hydrops of the gallbladder I identified the patient and participated in the time-out.: Yes Procedure Operation Date: 05/06/25 08:30 Laparoscopic cholecystectomy Surgeon Derrick Beaver MD [employer] Aluminum none Estimated Blood Loss 150 Findings Consistent with Post-Op Diagnosis Very inflamed gallbladder with large gallstone causing hydrops of the gallbladde r. Difficult visualization secondary to patient's body habitus. Specimens Gallbladder to pathology Drains Jose G drain in the gallbladder fossa Anesthesia Type General Complications none Disposition Accompanied Patient To Recovery: No Disposition: Recovery Room Indications This is a 29-year-old morbidly obese male who presented the ED for workup of abdominal pain. He is found to have acute cholecystitis with gallstones. We talked to him in detail about the surgery and went over the risks especially because of his morbid obesity and the acute nature of his gallbladder. He understands all the risks and wishes to proceed. Description of Procedure The patient was taken the OR, placed in the supine position and underwent excellent general endotracheal anesthesia. Their abdomen is prepped and draped normal sterile fashion. A transverse supraumbilical incision was made and dissection was taken down to identify the anterior fascia. This was extremely difficult secondary to his body habitus. Two Vicryl sutures were placed on either side of the midline and his midline was then incised. The peritoneal cavity was entered bluntly with Susan clamp. A 12mm Pulido trocar was then inserted and secured. Good pneumoperitoneum was achieved to 15 mmHg pressure. There was difficult visualization because of his intra-abdominal adiposity. The patient was placed in head up and rolled to the left position. A 11mm subxiphoid and two 5mm lateral ports were placed in the normal fashion, Long trocars had to be obtained to be able to get through his thick abdominal wall.. The gallbladder was identified and was acutely inflamed. An aspirator was then used to aspirate the gallbladder. This then facilitated grasping the the fundus of the gallbladder which was retracted superiorly. The neck of the gallbladder was grasped and then retracted laterally. There was difficult visualization because of the size of his liver and the inflammation in his gallbladder. There was a large stone which made mobilization of the gallbladder very difficult. But the Hepatocystic triangle was seen. Attention was then turned to taking down the peritoneal attachments and identify the cystic duct and cystic artery. Once these were skeletonized and a medial and lateral window was created between the gallbladder fossa and the duct, thereby ensuring the critical view. Because of the difficulty in visualization and thickness of the duct and the artery once the window was created in Endo JONO stapler was then inserted after the 12 port was exchanged for the 11 port and in the subxiphoid position. This was used to transect the artery and the duct. There was a branch of the cystic artery which was bleeding and this was clipped with a clip explosive technician. An electrocautery hook was then used to move the gallbladder off the gallbladder fossa. There was some bile spillage but no stones were spilled. The gallbladder was then placed into an Endobag and brought out through the supraumbilical incision. The pneumoperitoneum was re-established and abdomen was irrigated out until the suction fluid was clear. A Jose G drain was placed in the gallbladder fossa. There were some areas on the gallbladder fossa which were raw which were cauterized. The ports were then removed and the abdomen decompressed. The fascia of the supraumbilical incision was closed with Vicryl sutures. 0.5% Marcaine with epinephrine local was to create a local field block. The drain was sutured with a nylon suture and dahiana used to close the skin. Sterile dressings were applied. Patient tolerated the procedure without complication and sent to the postop recovery period of observation. They will then be sent to the floor for the rest of their care. This was a very difficult surgery which required more time and dissection and skill to get this gallbladder out laparoscopically, therefore modifier 22 was placed for this long and arduous case. I attest to the content of the Intraoperative Record and any orders documented therein. Any exceptions are noted below.
[2025-05-06] MEDS: HYDROmorphone INJ 1 MG/ML SYRINGE IV PRN (10:45)
--- NOTE | 2025-05-06 11:20 | Anesthesiology Progress Note ---
Date of Service May 06, 2025 Anesthesia Post Procedure Vital Signs Vital Signs: Temp Pulse Pulse Pulse Resp BP BP 05/06/25 11:15 37 C 75 17 138/78 05/06/25 11:05 73 18 129/78 05/06/25 10:55 70 17 137/82 05/06/25 10:45 68 16 140/82 05/06/25 10:36 36 C L 88 22 177/104 H 05/06/25 07:31 36.6 C 78 18 149/93 H 05/05/25 21:50 36.5 C 56 L 20 152/99 H 05/05/25 21:41 36.5 C 56 L 20 154/99 H 05/05/25 21:00 68 16 146/98 H 05/05/25 20:00 70 18 147/93 H 05/05/25 18:00 68 16 148/94 H 05/05/25 16:30 54 L 16 163/98 H 05/05/25 15:14 05/05/25 15:13 51 L 05/05/25 14:28 36.5 C 55 L 16 157/99 H Pulse Ox O2 Del Method O2 Flow Rate 05/06/25 11:15 96 Room Air 05/06/25 11:05 98 Oxymask 2 05/06/25 10:55 100 Oxymask 4 05/06/25 10:45 100 Oxymask 6 05/06/25 10:36 100 Oxymask 8 05/06/25 07:31 95 Room Air 05/05/25 21:50 95 Room Air 05/05/25 21:41 95 Room Air 05/05/25 21:00 98 Room Air 05/05/25 20:00 99 Room Air 05/05/25 18:00 98 Room Air 05/05/25 16:30 100 Room Air 05/05/25 15:14 100 Room Air 05/05/25 15:13 05/05/25 14:28 98 Room Air Pain Intensity Bilateral Upper Abdomen: Pain Intensity: 4 Abdomen: Pain Intensity: 3 Transfer of Care Handoff Completed per policy Notes Mental Status: alert / awake / arousable Patient Amnestic to Procedure: Yes Nausea / Vomiting: adequately controlled Pain: adequately controlled Airway Patency, RR, SpO2: stable & adequate BP & HR: stable & adequate Hydration State: stable & adequate Anesthetic Complications: no major complications apparent
[2025-05-06 13:18] LABS: Appearance Urine Clear (Clear); Glucose Urine UA Negative (Negative)
[2025-05-06] MEDS: MoRPHine SULFATE 4 MG/ML 1 ML CARP\\VIAL IV PRN (14:30)
--- NOTE | 2025-05-06 14:34 | Hospitalist Progress Note ---
Date of Service May 06, 2025 Assessment & Plan (1) Cholecystitis: Plan: 29-year-old male with past medical history significant for morbid obesity, psoriasis currently not taking any medications presents with right quadrant abdominal pain of 1 day duration Acute Cholecystitis -Presents with abdominal pain and CT scan showing moderate distended gallbladder with pericholecystic inflammatory changes suspicious for acute cholecystitis -Gallbladder ultrasound suspicious for acute cholecystitis and gallstones are seen. Echogenic and enlarged liver suggesting peritoneal process including but limited to steatosis seen -POD 0 acute cholecystectomy Plan: -surgery consulted, appreciate assistance on difficult case -incentive spirometer ordered -continue zosyn for 24 hours post op then stop -continue NS maintenance fluids Psoriasis -Follow-up with PCP Morbid obesity -Counseling -Follow-up with PCP Vaping -Request for nicotine gums -Counseling I spent a total of 25 minutes in direct patient care, including [id number] time with the patient and/or family, reviewing medical records, ordering and reviewing diagnostic tests, and coordinating care with other healthcare providers. This time includes: history taking, physical examination, medical decision making, counseling, ECG interpretation, imaging interpretation, lab interpretation, orders, and education, excluding time spent in the performance of separately billed services. Admission and Anticipated Discharge Date Admission Date: May 05, 2025 Subjective Patient not seen due to complicated cholycystectomy in OR during rounds. Review of Systems Review of Systems: -patient not seen Physical Exam Physical Exam: -patient not seen Results & Data Results & Data Vital Signs (Past 12 Hours) Vital Signs Temp Pulse Pulse Pulse Resp BP Pulse Ox 05/06/25 13:59 36.4 C L 70 20 136/86 96 05/06/25 12:50 36.7 C 83 18 130/84 96 05/06/25 12:21 36.4 C L 75 18 119/77 94 05/06/25 11:45 37.4 C 73 20 127/85 96 05/06/25 11:25 71 17 133/75 96 05/06/25 11:15 37 C 75 17 138/78 96 05/06/25 11:05 73 18 129/78 98 05/06/25 10:55 70 17 137/82 100 05/06/25 10:45 68 16 140/82 100 05/06/25 10:36 36 C L 88 22 177/104 H 100 05/06/25 07:31 36.6 C 78 18 149/93 H 95 O2 Del Method O2 Flow Rate 05/06/25 13:59 Room Air 05/06/25 12:50 Room Air 05/06/25 12:21 Room Air 05/06/25 11:45 Room Air 05/06/25 11:25 Room Air 05/06/25 11:15 Room Air 05/06/25 11:05 Oxymask 2 05/06/25 10:55 Oxymask 4 05/06/25 10:45 Oxymask 6 05/06/25 10:36 Oxymask 8 05/06/25 07:31 Room Air Laboratory Results -personally reviewed, creatinine 1.03 (unclear baseline), no leukocytosis noted, Hgb WNL Medications Administered Sodium Chloride (Nss) 1,000 mls @ 125 mls/hr IV .Q8H PAOLO Stop: 05/08/25 21:40 Last Admin: 05/06/25 12:46 Dose: Not Given Documented By: Admin: 05/06/25 12:19 Dose: 125 mls/hr Documented By: Infusion: 05/06/25 10:13 Dose: Infused Documented By: Admin: 05/05/25 21:56 Dose: 125 mls/hr Documented By: DEVIN Piperacillin Sod/Tazobactam Sod (Zosyn) 4.5 gm in 100 mls @ 25 mls/hr IV Q8H PAOLO; Protocol Stop: 05/16/25 00:00 Last Infusion: 05/06/25 12:46 Dose: Infused Documented By: Admin: 05/06/25 08:06 Dose: 25 mls/hr Documented By: Infusion: 05/06/25 04:20 Dose: Infused Documented By: Admin: 05/06/25 00:20 Dose: 25 mls/hr Documented By: DEVIN Morphine Sulfate (Morphine Sulfate 4 Mg/Ml 1 Ml Carp\Vial) 4 mg IV Q3H PRN PRN Reason: Pain (6,7,8,9,10) Stop: 05/20/25 11:36 Last Admin: 05/06/25 14:30 Dose: 4 mg Documented By: FAROOQ Ondansetron HCl (Ondansetron Inj 2 Mg/Ml 2 Ml Vial) 4 mg IV Q6H PRN PRN Reason: Nausea Stop: 06/04/25 21:40 Last Admin: 05/05/25 21:56 Dose: 4 mg Documented By: DEVIN Oxycodone/Acetaminophen (Oxycodone/Acetaminophen 5mg/325mg Tab) 2 tab PO Q4H PRN PRN Reason: SEVERE Pain (7,8,9,10) Stop: 05/20/25 11:36 Last Admin: 05/06/25 12:19 Dose: 2 tab Documented By: FAROOQ
--- NOTE | 2025-05-06 16:32 | Electrocardiogram Report ---
Test Reason : Blood Pressure : */* mmHG Vent. Rate : 51 BPM Atrial Rate : 51 BPM P-R Int : 144 ms QRS Dur : 114 ms QT Int : 420 ms P-R-T Axes : 40 53 34 degrees QTcB Int : 387 ms Sinus bradycardia Otherwise normal ECG No previous ECGs available Confirmed by Dimitris Graham ([id number]) on 05/06/2025 4:32:01 PM Referred By: REFERRED SELF Confirmed By: Dimitris Graham
[2025-05-06] MEDS: MoRPHine SULFATE 2 MG/ML CARP IV PRN (19:49)
[2025-05-07 06:52] LABS: Hematocrit (blood only) 40.5 % (42.0-52.0); Hemoglobin 13.1 g/dl (14.0-18.0); Mean Corpuscular Hemoglobin 28.4 pg (25.0-34.0); Mean Corpuscular Volume 87.7 fL (80.0-100.0); Platelet Count 194 K/uL (130-400); RDW Standard Deviation 39.3 fL (36.4-46.3); Red Blood Count 4.62 M/uL (4.70-6.10); White Blood Count 8.78 K/ul (4.8-10.8)
[2025-05-07 07:19] LABS: Alanine Aminotransferase 28.0 U/L (7-52); Albumin Globulin Ratio 1.3 (0.9-2); Alkaline Phosphatase 50.0 U/L (34-104); Anion Gap 6.0 (3-11); Bilirubin,Total 1.4 mg/dl (0.2-1.0); Blood Urea Nitrogen 7.0 mg/dl (6-23); Calcium 8.0 mg/dl (8.6-10.3); Carbon Dioxide 24.0 mmol/L (21-32); Chloride 108.0 mmol/L (98-107); Creatinine Clr Calc Pharmacy 238.5 ml/min; Globulin 2.8 gm/dl (2.5-4.0); Glucose 102.0 mg/dl (70-99(Fasting)); Magnesium 1.9 mg/dl (1.7-2.4); Potassium 3.8 mmol/L (3.5-5.1); Sodium 138.0 mmol/L (136-145); Total Protein 6.4 gm/dl (6.0-8.3)
--- NOTE | 2025-05-07 12:28 | Surgery Progress Note ---
Date of Service May 07, 2025 Assessment & Plan (1) Cholecystitis: Plan: con't clears IV abx monitor drain slow progress with severely inflamed GB Admission and Anticipated Discharge Date Admission Date: May 05, 2025 Subjective pain controlled AF VSS drain slowing Review of Systems Constitutional: no fever and no chills Respiratory: no dyspnea Cardiovascular: no chest pain Gastrointestinal: + abdominal pain; no nausea and no vomit ing Neurologic: no localized weakness Psychiatric: no behavioral changes Physical Exam Constitutional: WD/WN, vitals as above Respiratory: normal respiratory effort Cardiovascular: Rate/Rhythm: regular rate and regular rhythm Gastrointestinal (Abdomen): Inspection/Auscultation: abdomen normal to inspection; abdomen not distended Percussion/Palpation: + abdomen tender and abdomen soft; no guarding and abdomen not rigid venu serosanguinous Musculoskeletal: Head/Neck/Chest: normocephalic and head atraumatic Skin: no rashes, warm and dry Results & Data Vital Signs (Past 12 Hours) Vital Signs Temp Pulse Pulse Resp BP Pulse Ox O2 Del Method 05/07/25 12:00 36.7 C 91 H 17 148/104 H 95 Room Air 05/07/25 08:11 36.7 C 92 H 14 146/86 H 95 Room Air 05/07/25 07:22 36.8 C 75 16 132/78 96 Room Air 05/07/25 04:03 37.5 C 78 18 135/79 94 Room Air
[2025-05-07] MEDS: MoRPHine SULFATE 2 MG/ML CARP IV PRN (12:32)
--- NOTE | 2025-05-07 14:33 | Hospitalist Progress Note ---
Date of Service May 07, 2025 Assessment & Plan (1) Cholecystitis: Plan: 29-year-old male with past medical history significant for morbid obesity, psoriasis currently not taking any medications presents with right quadrant abdominal pain of 1 day duration Acute Cholecystitis s/p Cholecystectomy 05/06/2025 Sepsis -Presents with abdominal pain and CT scan showing moderate distended gallbladder with pericholecystic inflammatory changes suspicious for acute cholecystitis -Gallbladder ultrasound suspicious for acute cholecystitis and gallstones are seen. Echogenic and enlarged liver suggesting peritoneal process including but limited to steatosis seen -POD 1 acute cholecystectomy -patient with fever, tachycardia post op with abdomen as source Plan: -surgery consulted, appreciate assistance on difficult case -check CT abdomen/pelvis with contrast, xr chest, and urinalysis given new fever/tachycardia that was not present before procedure and already on abx, technically very complex procedure given anatomy and severity of gallbladder disease, discussed personally with surgery -incentive spirometer ordered -continue zosyn for now given sepsis -continue NS maintenance fluids Psoriasis -Follow-up with PCP Morbid obesity -Counseling -Follow-up with PCP Vaping -Request for nicotine gums -Counseling I spent a total of 50 minutes in direct patient care, including [id number] time with the patient and/or family, reviewing medical records, ordering and reviewing diagnostic tests, and coordinating care with other healthcare providers. This time includes: history taking, physical examination, medical decision making, counseling, ECG interpretation, imaging interpretation, lab interpretation, orders, and education, excluding time spent in the performance of separately billed services. Admission and Anticipated Discharge Date Admission Date: May 05, 2025 Subjective Patient seen and examined at bedside. Mother present as well. Patient doing ok this morning. Of note, this afternoon tachycardic with fever of 38 C. Review of Systems Review of Systems: CONSTITUTIONAL: Patient denies fevers, chills, sweats and weight changes. EYES: Patient denies any visual symptoms. EARS, NOSE, AND THROAT: No difficulties with hearing. No symptoms of rhinitis or sore throat. CARDIOVASCULAR: Patient denies chest pains, palpitations, orthopnea and paroxysmal nocturnal dyspnea. RESPIRATORY: No dyspnea on exertion, no wheezing or cough. GI: No nausea, vomiting, diarrhea, constipation, abdominal pain, hematochezia or melena. : No urinary hesitancy or dribbling. No nocturia or urinary frequency. No abnormal urethral discharge. MUSCULOSKELETAL: post op pain NEUROLOGIC: No chronic headaches, no seizures. Patient denies numbness, tingling or weakness. PSYCHIATRIC: Patient denies problems with mood disturbance. No problems with anxiety. ENDOCRINE: No excessive urination or excessive thirst. DERMATOLOGIC: Patient denies any rashes or skin changes. Physical Exam Physical Exam: Gen: A&O 3 NAD HEENT: NCAT, EOMI, not icteric. External ears normal. No rhinorrhea. Moist mucous membranes. Neck: Supple, full range of motion, no observable masses, No meningeal sign. Lungs: No Respiratory distress. CV: RRR, no edema. Abdomen: mild tenderness to palpation around wound site, no clear purulence of drainage, drain in place MSK: No joint swelling, no redness. Skin: No rashes, petechiae, lesions. Normal color per patient. Neuro: Normal Gait, Grossly intact. Psych: Appropriate for situation. Results & Data Results & Data Vital Signs (Past 12 Hours) Vital Signs Temp Pulse Pulse Resp BP Pulse Ox O2 Del Method 05/07/25 14:11 37.9 C H 101 H 16 132/92 92 Room Air 05/07/25 12:00 36.7 C 91 H 17 148/104 H 95 Room Air 05/07/25 08:11 36.7 C 92 H 14 146/86 H 95 Room Air 05/07/25 07:22 36.8 C 75 16 132/78 96 Room Air 05/07/25 04:03 37.5 C 78 18 135/79 94 Room Air Laboratory Results -personally reviewed, Hgb stable, creatinine downtrending Medications Administered Sodium Chloride (Nss) 1,000 mls @ 125 mls/hr IV .Q8H PAOLO Stop: 05/08/25 21:40 Last Admin: 05/07/25 13:28 Dose: 125 mls/hr Documented By: Infusion: 05/07/25 13:26 Dose: Infused Documented By: Admin: 05/07/25 05:16 Dose: 125 mls/hr Documented By: Infusion: 05/07/25 05:16 Dose: Infused Documented By: Admin: 05/06/25 21:21 Dose: 125 mls/hr Documented By: Infusion: 05/06/25 20:26 Dose: Infused Documented By: Admin: 05/06/25 12:46 Dose: Not Given Documented By: Admin: 05/06/25 12:19 Dose: 125 mls/hr Documented By: Infusion: 05/06/25 10:13 Dose: Infused Documented By: Admin: 05/05/25 21:56 Dose: 125 mls/hr Documented By: DEVIN Piperacillin Sod/Tazobactam Sod (Zosyn) 4.5 gm in 100 mls @ 25 mls/hr IV Q8H SC [facility]; Protocol Stop: 05/16/25 00:00 Last Infusion: 05/07/25 12:31 Dose: Infused Documented By: Admin: 05/07/25 08:29 Dose: 25 mls/hr Documented By: Infusion: 05/07/25 01:22 Dose: Infused Documented By: Admin: 05/06/25 21:21 Dose: 25 mls/hr Documented By: Infusion: 05/06/25 19:35 Dose: Infused Documented By: Admin: 05/06/25 15:03 Dose: 25 mls/hr Documented By: Infusion: 05/06/25 12:46 Dose: Infused Documented By: Admin: 05/06/25 08:06 Dose: 25 mls/hr Documented By: Infusion: 05/06/25 04:20 Dose: Infused Documented By: Admin: 05/06/25 00:20 Dose: 25 mls/hr Documented By: DEVIN Morphine Sulfate (Morphine Sulfate 2 Mg/Ml Carp) 2 mg IV Q3H PRN PRN Reason: breakthrough pain & Pre PT Stop: 05/20/25 11:36 Last Admin: 05/07/25 12:32 Dose: 2 mg Documented By: SANDOR Ondansetron HCl (Ondansetron Inj 2 Mg/Ml 2 Ml Vial) 4 mg IV Q6H PRN PRN Reason: Nausea Stop: 06/04/25 21:40 Last Admin: 05/06/25 19:49 Dose: 4 mg Documented By: Admin: 05/05/25 21:56 Dose: 4 mg Documented By: DEVIN Oxycodone/Acetaminophen (Oxycodone/Acetaminophen 5mg/325mg Tab) 1 tab PO Q4H PRN PRN Reason: MODERATE Pain (4,5,6) & Pre PT Stop: 05/20/25 11:36 Last Admin: 05/07/25 13:30 Dose: 1 tab Documented By: SANDOR Oxycodone/Acetaminophen (Oxycodone/Acetaminophen 5mg/325mg Tab) 2 tab PO Q4H PRN PRN Reason: SEVERE Pain (7,8,9,10) Stop: 05/20/25 11:36 Last Admin: 05/06/25 16:05 Dose: 2 tab Documented By: Admin: 05/06/25 12:19 Dose: 2 tab Documented By: FAROOQ
--- NOTE | 2025-05-07 15:01 | XRay Report ---
XR chest 1V portable CLINICAL HISTORY: post op fever COMPARISON STUDY: None FINDINGS: Heart size and pulmonary vasculature are normal. Inspiration is shallow. There is stranding opacity in the lung bases. No lobar consolidation, pleural effusion, or pneumothorax. IMPRESSION: Atelectasis versus early pneumonia in the lung bases. ACT 112: Negative or not required by law. Electronically signed by: Lencho Hinds M.D. 05/07/2025 3:00 PM
[2025-05-07] MEDS: OPTIRAY 320 125ml IV ONE (15:15)
--- NOTE | 2025-05-07 15:40 | CT Scan Report ---
ABDOMEN AND PELVIS CT WITH IV CONTRAST CT DOSE: 1802.9 mGy.cm HISTORY: Acute fever status post cholecystectomy tachycarida/fevers post cholecystectomy TECHNIQUE: Multiaxial CT images of the abdomen and pelvis were performed following the IV administrat ion of 115 cc of Optiray, A dose lowering technique was utilized adhering to the principles of ALARA . COMPARISON STUDY: 05/05/2025 FINDINGS: Linear bibasilar consolidative dependent opacities, right greater than left. Subcutaneous a nd deep tissue air in the lateral right abdomen and periumbilical tissues adjacent to the trocar site s related to recent laparoscopic cholecystectomy. Additionally, there are 2 trace scattered foci of u pper abdominal pneumoperitoneum. Surgical clips from cholecystectomy with centrally hypodense structu re within the michelle hepatis measuring 2.6 x 2.4 cm on image 132 series 3. Moderate adjacent stranding with trace fluid tracking along the right pericolic gutter. No drainable fluid collections. A cathet er is in place with distal tip terminating along the inferior liver margin on image 151 series 3 ante rior to the michelle hepatis. Unremarkable spleen, pancreas and right adrenal gland. Stable probable adenoma of the left adrenal gl and measures 1.2 cm. Hepatomegaly with hepatic steatosis. The portal vein appears patent. Unremarkabl e kidneys. No hydronephrosis. Urinary bladder is within normal limits. Aorta and IVC are unremarkable . Mild wall thickening of the duodenum is likely reactive. No bowel obstruction. Normal contrast-fill ed appendix. No acute fracture. IMPRESSION: 1. Postoperative changes compatible with recent laparoscopic cholecystectomy. Probable residual gallb ladder within the michelle hepatis with trace expected ascites and surgical drainage catheter in place. 2. Subcutaneous emphysema of the abdominal wall with trace pneumoperitoneum, also likely expected pos toperative findings. 3. No bowel obstruction. 4. Normal appendix. 5. Bibasilar consolidation suggestive of atelectasis. Pneumonia considered less likely. ACT 112: Negative or not required by law. The above report was generated using voice recognition software. It may contain grammatical, syntax o r spelling errors. Electronically signed by: Rohan Packer M.D. 05/07/2025 3:38 PM
[2025-05-07 15:55] LABS: Appearance Urine Clear (Clear); Glucose Urine UA Negative (Negative)
[2025-05-07] MEDS: DOXYCYCLINE HYCLATE 100 MG CAP PO SCH (21:24)
[2025-05-08 06:29] LABS: Hematocrit (blood only) 39.1 % (42.0-52.0); Hemoglobin 13.1 g/dl (14.0-18.0); Mean Corpuscular Hemoglobin 29.1 pg (25.0-34.0); Mean Corpuscular Volume 86.9 fL (80.0-100.0); Platelet Count 197 K/uL (130-400); RDW Standard Deviation 39.1 fL (36.4-46.3); Red Blood Count 4.50 M/uL (4.70-6.10); White Blood Count 6.70 K/ul (4.8-10.8)
[2025-05-08 06:47] LABS: Alanine Aminotransferase 25.0 U/L (7-52); Albumin Globulin Ratio 1.3 (0.9-2); Alkaline Phosphatase 53.0 U/L (34-104); Anion Gap 8.0 (3-11); Bilirubin,Total 1.3 mg/dl (0.2-1.0); Blood Urea Nitrogen 6.0 mg/dl (6-23); Calcium 8.0 mg/dl (8.6-10.3); Carbon Dioxide 23.0 mmol/L (21-32); Chloride 109.0 mmol/L (98-107); Creatinine Clr Calc Pharmacy 238.5 ml/min; Globulin 2.7 gm/dl (2.5-4.0); Glucose 89.0 mg/dl (70-99(Fasting)); Potassium 3.5 mmol/L (3.5-5.1); Sodium 140.0 mmol/L (136-145); Total Protein 6.1 gm/dl (6.0-8.3)
--- NOTE | 2025-05-08 08:25 | Surgery Progress Note ---
Date of Service May 08, 2025 Assessment & Plan (1) Cholecystitis: Plan: severe acute cholecystitis con't IV abx monitor drain ambulate Admission and Anticipated Discharge Date Admission Date: May 05, 2025 Subjective feels alot better today AF VSS CT scan with post op changes drain not bilious Review of Systems Constitutional: no fever and no chills Respiratory: no dyspnea Cardiovascular: no chest pain Gastrointestinal: + abdominal pain; no nausea and no vomit ing Genitourinary: no dysuria Neurologic: no localized weakness Psychiatric: no behavioral changes Physical Exam Constitutional: WD/WN, vitals as above Eyes: no scleral abnormality Respiratory: normal respiratory effort Cardiovascular: Rate/Rhythm: regular rate and regular rhythm Gastrointestinal (Abdomen): Inspection/Auscultation: abdomen normal to inspection; abdomen not distended Percussion/Palpation: + abdomen tender and abdomen soft; no guarding and abdomen not rigid Skin: no rashes, warm and dry Results & Data Vital Signs (Past 12 Hours) Vital Signs Temp Pulse Resp BP Pulse Ox O2 Del Method 05/08/25 08:06 36.2 C L 73 21 150/95 H 96 Room Air 05/08/25 03:54 37.6 C H 84 18 132/83 94 Room Air 05/08/25 00:05 36.5 C 91 H 18 149/85 H 93 Room Air
--- NOTE | 2025-05-08 17:54 | Hospitalist Progress Note ---
Date of Service May 08, 2025 Assessment & Plan (1) Cholecystitis: Plan: 29-year-old male with past medical history significant for morbid obesity, psoriasis currently not taking any medications presents with right quadrant abdominal pain of 1 day duration Acute Cholecystitis s/p Cholecystectomy 05/06/2025 Sepsis -Presents with abdominal pain and CT scan showing moderate distended gallbladder with pericholecystic inflammatory changes suspicious for acute cholecystitis -Gallbladder ultrasound suspicious for acute cholecystitis and gallstones are seen. Echogenic and enlarged liver suggesting peritoneal process including but limited to steatosis seen -POD 2 acute cholecystectomy -patient with fever, tachycardia post op which has since improved, workup relatively unremarkable Plan: -surgery consulted, appreciate assistance on difficult case, discussed personally with surgery -incentive spirometer ordered -continue zosyn for now given sepsis -stop maintenance fluids -advanced diet which patient tolerated well, requested no discharge until tomorrow, likely discharge in AM 05/09/2025 Psoriasis -Follow-up with PCP Morbid obesity -Counseling -Follow-up with PCP Vaping -Request for nicotine gums -Counseling I spent a total of 40 minutes in direct patient care, including [id number] time with the patient and/or family, reviewing medical records, ordering and reviewing diagnostic tests, and coordinating care with other healthcare providers. This time includes: history taking, physical examination, medical de cision making, counseling, ECG interpretation, imaging interpretation, lab interpretation, orders, and education, excluding time spent in the performance of separately billed services. Admission and Anticipated Discharge Date Admission Date: May 05, 2025 Subjective Patient seen and examined at bedside. patient doing better today, walking around and pain well controlled. Review of Systems Review of Systems: CONSTITUTIONAL: Patient denies fevers, chills, sweats and weight changes. EYES: Patient denies any visual symptoms. EARS, NOSE, AND THROAT: No difficulties with hearing. No symptoms of rhinitis or sore throat. CARDIOVASCULAR: Patient denies chest pains, palpitations, orthopnea and paroxysmal nocturnal dyspnea. RESPIRATORY: No dyspnea on exertion, no wheezing or cough. GI: No nausea, vomiting, diarrhea, constipation, abdominal pain, hematochezia or melena. : No urinary hesitancy or dribbling. No nocturia or urinary frequency. No abnormal urethral discharge. MUSCULOSKELETAL: post op pain, improved NEUROLOGIC: No chronic headaches, no seizures. Patient denies numbness, tingling or weakness. PSYCHIATRIC: Patient denies problems with mood disturbance. No problems with anxiety. ENDOCRINE: No excessive urination or excessive thirst. DERMATOLOGIC: Patient denies any rashes or skin changes. Physical Exam Physical Exam: Gen: A&O 3 NAD HEENT: NCAT, EOMI, not icteric. External ears normal. No rhinorrhea. Moist mucous membranes. Neck: Supple, full range of motion, no observable masses, No meningeal sign. Lungs: No Respiratory distress. CV: RRR, no edema. Abdomen: mild tenderness to palpation around wound site, no clear purulence of drainage, drain in place MSK: No joint swelling, no redness. Skin: No rashes, petechiae, lesions. Normal color per patient. Neuro: Normal Gait, Grossly intact. Psych: Appropriate for situation. Results & Data Results & Data Vital Signs (Past 12 Hours) Vital Signs Temp Pulse Resp BP Pulse Ox O2 Del Method 05/08/25 16:45 36.5 C 72 20 155/95 H 94 Room Air 05/08/25 11:01 36.8 C 67 18 152/98 H 95 Room Air 05/08/25 08:06 36.2 C L 73 21 150/95 H 96 Room Air 05/08/25 08:00 Room Air Laboratory Results -personally reviewed, no leukocytosis, creatinine at baseline Medications Administered Doxycycline Hyclate (Doxycycline Hyclate 100 Mg Cap) 100 mg PO BID [facility] Stop: 05/12/25 20:59 Last Admin: 05/08/25 07:54 Dose: 100 mg Documented By: Admin: 05/07/25 21:24 Dose: 100 mg Documented By: RALF Sodium Chloride (Nss) 1,000 mls @ 125 mls/hr IV .Q8H PAOLO Stop: 05/08/25 21:40 Last Admin: 05/08/25 12:58 Dose: 125 mls/hr Documented By: Infusion: 05/08/25 12:58 Dose: Infused Documented By: Infusion: 05/08/25 07:56 Dose: 125 mls/hr Documented By: Infusion: 05/08/25 07:54 Dose: 0 mls/hr Documented By: Admin: 05/08/25 05:24 Dose: 125 mls/hr Documented By: Infusion: 05/08/25 05:24 Dose: Infused Documented By: [employer] ENGINEER Admin: 05/07/25 21:24 Dose: 125 mls/hr Documented By: [employer] ENGINEER Infusion: 05/07/25 21:24 Dose: Infused Documented By: [employer] ENGINEER Admin: 05/07/25 13:28 Dose: 125 mls/hr Documented By: Infusion: 05/07/25 13:26 Dose: Infused Documented By: Admin: 05/07/25 05:16 Dose: 125 mls/hr Documented By: Infusion: 05/07/25 05:16 Dose: Infused Documented By: Admin: 05/06/25 21:21 Dose: 125 mls/hr Documented By: Infusion: 05/06/25 20:26 Dose: Infused Documented By: Admin: 05/06/25 12:46 Dose: Not Given Documented By: Admin: 05/06/25 12:19 Dose: 125 mls/hr Documented By: Infusion: 05/06/25 10:13 Dose: Infused Documented By: Admin: 05/05/25 21:56 Dose: 125 mls/hr Documented By: DEVIN Piperacillin Sod/Tazobactam Sod (Zosyn) 4.5 gm in 100 mls @ 25 mls/hr IV Q8H [facility]; Protocol Stop: 05/16/25 00:00 Last Admin: 05/08/25 15:42 Dose: 25 mls/hr Documented By: Infusion: 05/08/25 12:00 Dose: Infused Documented By: Admin: 05/08/25 07:54 Dose: 25 mls/hr Documented By: Infusion: 05/08/25 03:56 Dose: Infused Documented By: [employer] ENGINEER Admin: 05/07/25 23:56 Dose: 25 mls/hr Documented By: [employer] ENGINEER Infusion: 05/07/25 21:08 Dose: Infused Documented By: [employer] ENGINEER Admin: 05/07/25 17:07 Dose: 25 mls/hr Documented By: Infusion: 05/07/25 12:31 Dose: Infused Documented By: Admin: 05/07/25 08:29 Dose: 25 mls/hr Documented By: Infusion: 05/07/25 01:22 Dose: Infused Documented By: Admin: 05/06/25 21:21 Dose: 25 mls/hr Documented By: Infusion: 05/06/25 19:35 Dose: Infused Documented By: Admin: 05/06/25 15:03 Dose: 25 mls/hr Documented By: Infusion: 05/06/25 12:46 Dose: Infused Documented By: Admin: 05/06/25 08:06 Dose: 25 mls/hr Documented By: Infusion: 05/06/25 04:20 Dose: Infused Documented By: Admin: 05/06/25 00:20 Dose: 25 mls/hr Documented By: DEVIN Ondansetron HCl (Ondansetron Inj 2 Mg/Ml 2 Ml Vial) 4 mg IV Q6H PRN PRN Reason: Nausea Stop: 06/04/25 21:40 Last Admin: 05/06/25 19:49 Dose: 4 mg Documented By: Admin: 05/05/25 21:56 Dose: 4 mg Documented By: DEVIN Oxycodone/Acetaminophen (Oxycodone/Acetaminophen 5mg/325mg Tab) 1 tab PO Q4H PRN PRN Reason: MODERATE Pain (4,5,6) & Pre PT Stop: 05/20/25 11:36 Last Admin: 05/08/25 13:00 Dose: 1 tab Documented By: Admin: 05/08/25 03:07 Dose: 1 tab Documented By: Admin: 05/07/25 19:21 Dose: 1 tab Documented By: Admin: 05/07/25 13:30 Dose: 1 tab Documented By: SANDOR Oxycodone/Acetaminophen (Oxycodone/Acetaminophen 5mg/325mg Tab) 2 tab PO Q4H PRN PRN Reason: SEVERE Pain (7,8,9,10) Stop: 05/20/25 11:36 Last Admin: 05/06/25 16:05 Dose: 2 tab Documented By: Admin: 05/06/25 12:19 Dose: 2 tab Documented By: FAROOQ
[2025-05-09 06:08] LABS: Hematocrit (blood only) 38.8 % (42.0-52.0); Hemoglobin 13.2 g/dl (14.0-18.0); Mean Corpuscular Hemoglobin 29.5 pg (25.0-34.0); Mean Corpuscular Volume 86.8 fL (80.0-100.0); Platelet Count 226 K/uL (130-400); RDW Standard Deviation 38.0 fL (36.4-46.3); Red Blood Count 4.47 M/uL (4.70-6.10); White Blood Count 5.91 K/ul (4.8-10.8)
[2025-05-09 06:28] LABS: Alanine Aminotransferase 24.0 U/L (7-52); Albumin Globulin Ratio 1.3 (0.9-2); Alkaline Phosphatase 55.0 U/L (34-104); Anion Gap 6.0 (3-11); Bilirubin,Total 0.9 mg/dl (0.2-1.0); Blood Urea Nitrogen 5.0 mg/dl (6-23); Calcium 8.3 mg/dl (8.6-10.3); Carbon Dioxide 23.0 mmol/L (21-32); Chloride 110.0 mmol/L (98-107); Creatinine Clr Calc Pharmacy 241.5 ml/min; Globulin 2.7 gm/dl (2.5-4.0); Glucose 92.0 mg/dl (70-99(Fasting)); Potassium 3.6 mmol/L (3.5-5.1); Sodium 139.0 mmol/L (136-145); Total Protein 6.2 gm/dl (6.0-8.3)
--- NOTE | 2025-05-09 07:42 | Surgery Progress Note ---
Date of Service May 09, 2025 Assessment & Plan (1) Cholecystitis: Plan: discharge per medical team Rx augmentin, percocet go home with drain appt my clinic 05/14 Admission and Anticipated Discharge Date Admission Date: May 05, 2025 Subjective no complaints Review of Systems Constitutional: no fever and no chills Respiratory: no dyspnea Cardiovascular: no chest pain Gastrointestinal: + abdominal pain; no nausea, no vomiting and no change in bowel habits Neurologic: no localized weakness Psychiatric: no behavioral changes Physical Exam Constitutional: WD/WN, vitals as above Respiratory: normal respiratory effort Cardiovascular: Rate/Rhythm: regular rate and regular rhythm Gastrointestinal (Abdomen): Inspection/Auscultation: abdomen normal to inspection; abdomen not distended Percussion/Palpation: + abdomen tender and abdomen soft; no guarding and abdomen not rigid Skin: no rashes, warm and dry Results & Data Vital Signs (Past 12 Hours) Vital Signs Temp Pulse Resp BP Pulse Ox O2 Del Method 05/09/25 02:36 36.8 C 90 18 140/90 94 Room Air 05/08/25 22:27 36.8 C 77 18 129/87 97 Room Air
--- NOTE | 2025-05-09 10:22 | Discharge Summary ---
Discharge Summary Date of Service May 09, 2025 Principal Dx & Hospital Course #1 = Principal Diagnosis (1) Cholecystitis: (2) Status post cholecystectomy: (3) Obesity: (4) Psoriasis: Plan Patient is a 29-year-old gentleman presented to the emergency room with right upper quadrant pain, nausea and vomiting. Evaluation in the emergency room was consistent with acute cholecystitis with findings of distended gallbladder on CT. Patient was admitted to the hospital. Made n.p.o. and started on empiric antibiotics. Surgical consultation was obtained. Patient was taken to the operating room and underwent laparoscopic cholecystectomy on 05/06/2025. Gallbladder was significantly inflamed on clinical inspection. Patient's postoperative course was slightly complicated in the fact that he did have some tachycardia and fever postoperatively. Follow-up CT scan was performed. Question possible some residual gallbladder. But no other acute findings. All of the findings were expected postoperatively. Patient was continued on antibiotics and continued to improve. His pain was managed. He was continued on antibiotics. His diet was advanced. Laboratory studies stabilized. On the day of discharge his vital signs were stable. Had minimal pain. To be transition to oral antibiotics discharged home with ABDOULAYE drain in place has other incisions are healing well. A follow-up with surgery next week for removal of ABDOULAYE drain. Notes For Next Care Provider Follow-up with surgery for removal of ABDOULAYE drain Medication Changes From Visit Augmentin for acute cholecystitis Percocet for pain Admission HPI Per Admitting Provider 29-year-old male with past medical history significant for morbid obesity, psoriasis currently not taking any medications presents with right quadrant abdominal pain of 1 day duration. Was having nausea and vomitings. Currently with the pain medication pain is improved. Resting comfortably. Afebrile. Denies any headache, runny nose or sore throat. No chest pain or shortness of breath. Hemodynamics are okay. Past medical history. As mentioned above Past surgical history. None as per [employer] Social history. Vapes. Alcohol once a month as per [employer]. No drug use. Family history. Father had diabetes. Hypertension. Maternal grandfather had diabetes. Hypertension. Paternal grandfather had diabetes. Hypertension. Mother has hypertension. Admission Exam Per Admitting Provider See H&P Discharge Exam Constitutional: Alert, nontoxic HEENT: Mucous membranes moist. Lungs: Clear to auscultation, decreased, no wheezes rales or rhonchi CV: S1-S2, regular Abdomen: Soft, minimal tenderness, laparoscopic incisions healing well, dahiana in place, ABDOULAYE drain in place. Extremities: No significant edema Neuro: No focal deficits Psych: Cooperative, normal mood Updated Medication List Medication Instructions Recorded Confirmed Type amoxicillin 875 mg-potassium 1 tab PO BID #10 tabs 05/09/25 Rx clavulanate 125 mg tablet oxycodone-acetaminophen 5 mg-325 1 tab PO Q4H PRN pain #10 tabs 05/09/25 Rx mg tablet (Percocet) Hospital Stay Data Consultations 05/05/25 19:40 ED Decision to Admit Stat 05/06/25 08:00 Consult General Surgery Routine Procedures Performed Operation Date: 05/06/25 08:30 Actual Procedures p Laparoscopic Cholecystectomy(Not Applicable) - Derrick Beaver MD Diagnostic Imagining Performed 05/05/25 14:51 CT abd pelvis oral and IV con Stat 05/05/25 18:47 US gallbladder Stat 05/07/25 14:33 CT abd pelvis IV con only Urgent Reviewed imaging, laboratory and diagnostic studies. Pertinent findings as below. WBCs 4.4 Hemoglobin 13.2, stable Platelets of 226 Electrolytes stable Creatinine 0.79 LFTs within normal range CT postoperative showed possibly some residual gallbladder. Some atelectasis. Pending Results Patient Have Any Pending Studies at Discharge: No Discharge Instructions Given to Patient (Per Discharging Provider) Post-Surgical ~Discharge Instructions Activity Recommendations: - Lifting limitation: (<20 pounds for 3-4 weeks), - Exercise/sex/sports limit: (nonstrenuous for 2 weeks), - Driving or machine use limit: (none after 3 days post-op as long as pain free and no longer taking narcotic pain medication), - Shower/bathe limit: (may shower tomorrow, no submerging incisions underwater for 2 weeks, Dermabond will peel off in 1-2 weeks) - Call the surgeon's office with any questions or concerns - ; ex. temperature higher than 101.5 degrees F, excessive bleeding or pain Diet: - Resume previous diet, regular as tolerated. Medications: - Resume previous medications unless instructed otherwise by your surgeon. - May alternate extra strength Tylenol and Ibuprofen as needed for mild to moderate pain - Tylenol 650 mg every 6 hours as needed - Ibuprofen 600 mg every 6 hours as needed, take with food - Percocet 1 every 6 hours, as needed for moderate to severe pain. Narcotics may cause nausea on an empty stomach, please eat before taking pain pills - Recommend daily stool softener (Colace) while taking narcotic pain medication to prevent constipation or straining. Drink plenty of water daily. Follow-up: - If not already scheduled, please call the office to schedule a follow-up appointment on 05/14 to have drain removed Office number Total Time Total Time Spent Total Time Spent (In Minutes): 22
== END 2025-05-09 10:35 | disposition home or self-care (01) | DRG 854 ==
LOC: ED 14:19 → SUATTDRO 20:12 → 3W 20:12 → 4W 05-07 17:29